=== PATIENT | female | born 1985 ===

== ENCOUNTER 2018-10-17 13:02 | Outpatient (CLI) | payer SELFPAY ==
[2018-10-17] MEDS ORDERED: LACTATED RINGERS 500 ML IV ONE (13:45)
[2018-10-17] MEDS ORDERED: LACTATED RINGERS 1,000 ML IV SCH (14:00)
[2018-10-17 14:35] LABS: Hematocrit 38.8 % (30.3-42.9); Mean Corpuscular HGB Conc 33 % (30-34); Mean Corpuscular Volume 94 fl (79-97); Platelet Count 185 K/mm3 (140-440); Red Blood Count 4.14 M/mm3 (3.65-5.03)
[2018-10-17 14:44] LABS: Bacteria,Urine 2+ /HPF (Negative); Bilirubin,Urine NEG (Negative); Blood,Urine NEG (Negative); Color,Urine Yellow (Yellow); Mucus,Urine 3+ /HPF; Urobilinogen,Urine < 2.0 mg/dL (<2.0)
[2018-10-17 14:57] LABS: Alanine Aminotransferase 16 units/L (7-56)
[2018-10-17 15:02] LABS: Uric Acid 5.7 mg/dL (3.5-7.6)
--- NOTE | 2018-10-17 15:19 | Ultrasound Report ---
ULTRASOUND BIOPHYSICAL PROFILE INDICATION: BPP/GAYLE. well being COMPARISON: None available. FINDINGS: heart rate is 145 beats per minute. breathing movement = 2 Gross body movement = 2 tone = 2 Qualitative amniotic fluid volume = 2 IMPRESSION: biophysical profile = 10/23 Signer Name: Bhaskar Rosenthal Jr, MD Signed: 10/17/2018 3:15 PM Workstation Name: [id number]
--- NOTE | 2018-10-17 15:21 | Ultrasound Report ---
OB ultrasound limited History: EFW Comparison: None Procedure: Real time ultrasound was utilized to evaluate. Findings: A single intrauterine is identified which by BPD,HC, AC and FL measurements is eq uivalent to a 37 weeks 1 day gestation. Positive heart motion and movement is identified. Amnionic fluid volume is normal with an index of 15.6 cm. Estimated weight is 3976 g (8 lbs. 12 oz.) biometry is as follows: BPD 9.2 cm, 37 weeks 1 day HC 33.0 cm, 37 weeks 4 days AC. 38.5 cm, out of range Femur length 7.1 cm, 36 weeks 4 days anatomy was not evaluated. Impression: 1. Living IUP 37 week 1 day gestation is present in a cephalic presentation. 2. Estimated body weight is 8 lbs. 12 oz. (3976 g). Signer Name: Celina Kapoor MD Signed: 10/17/2018 3:17 PM Workstation Name: [id number]
[2018-10-18 14:20] LABS: Creatinine,Urine 73.4 mg/dL (0.1-20.0)
[2018-10-18 14:25] LABS: Creatinine 24 Hour,Urine 1.8 (0.8-2.8)
[2018-10-18 15:29] VITALS: BP 141/71
== END 2018-10-18 16:00 | disposition home or self-care (01) ==
LOC: TRG 13:02 → LD 13:03 → TRG 10-18 16:00
PROVIDERS: ATTEND Obstetrics & Gynecology
DX: O13.3 Gestational [pregnancy-induced] hypertension without significant proteinuria, third trimester (principal); O47.03 False labor before 37 completed weeks of gestation, third trimester; Z3A.36 36 weeks gestation of pregnancy
CPT/HCPCS: 36415; 76816; 76819; 81001; 82565; 82570; 83615; 84156; 84450; 84460; 84550; 85027; 86850; 86870; 86900; 86901; 87086; J7120

== ENCOUNTER 2018-10-23 17:37 | Inpatient (IN) | payer OTHER ==
[2018-10-23 20:28] LABS: Hematocrit 34.9 % (30.3-42.9); Hemoglobin 12.2 gm/dl (10.1-14.3); Mean Corpuscular HGB Conc 35 % (30-34); Mean Corpuscular Volume 91 fl (79-97); Platelet Count 175 K/mm3 (140-440); Red Blood Count 3.82 M/mm3 (3.65-5.03); Red Cell Distribution Width 13.9 % (13.2-15.2)
[2018-10-23 20:38] LABS: Bilirubin,Urine NEG (Negative); Blood,Urine NEG (Negative); Color,Urine Yellow (Yellow); Mucus,Urine FEW /HPF; Protein,Urine <15 mg/dL mg/dL (Negative); Urobilinogen,Urine < 2.0 mg/dL (<2.0)
[2018-10-23 20:45] LABS: Alanine Aminotransferase 16 units/L (7-56); Uric Acid 6.4 mg/dL (3.5-7.6)
[2018-10-23] MEDS ORDERED: BRETHINE SUB-Q PRN (21:02)
[2018-10-23] MEDS ORDERED: XYLOCAINE 2% INFILTRATI ONE (21:02)
[2018-10-23] MEDS ORDERED: MINERAL OIL PO PRN (21:02)
[2018-10-23] MEDS ORDERED: PHENERGAN PO PRN (21:02)
[2018-10-23] MEDS ORDERED: NARCAN 0.4 MG/1 ML IV PRN (21:02)
[2018-10-23] MEDS ORDERED: CERVIDIL VG ONE (21:02)
[2018-10-23] MEDS ORDERED: ZOFRAN IV PRN (21:02)
[2018-10-23] MEDS ORDERED: BRETHINE IVP PRN (21:02)
--- NOTE | 2018-10-23 21:25 | History and Physical Report ---
History of Present Illness Date of examination: 10/23/18 Date of admission: 10/23/2018 Chief complaint: Sent from office for elevated b/p History of present illness: 33 yo , CHRISS 11/09/2018, 37 weeks 4 days sent from [facility] with elevated pressures, c/o persistent headaches for PIH work-up. Pt previously had PIH labs (WNL) and 24 hr UA collection (400 Protein) on 10/17/18. Today NST reactive and reassuring. BPP 10/23. GAYLE 11cm. PIH labs LDH 232. Pt complains of persistent BECKMAN with no relief from Tylenol. 1+ edema noted. Per consult with Dr. Edmondson pt to be admitted for cervidil IOL. Pt transferred care to [facility] at 33w1d from [facility]. has been uncomplicated until onset of headaches and elevated b/p recently. 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 denies: smoking, alcohol abuse, prescription drug abuse, IV drug use - Obstetrical History Expected Date of Delivery: 11/09/18 Actual Gestation: 37 Week(s) 4 Day(s) : 2 Para: 0 Hx # Term Pregnancies: 0 Number of Pregnancies: 0 Spontaneous Abortions: 0 Induced : 1 Number of Living Children: 0 Medications and Allergies Allergies Allergy/AdvReac Type Severity Reaction Status Date / Time No Known Allergies Allergy Verified 10/17/18 13:47 Active Meds: Active Medications Dinoprostone (Cervidil) 10 mg VG ONCE ONE Stop: 10/23/18 21:03 Ephedrine Sulfate (Ephedrine Sulfate) 10 mg IV Q2M PRN PRN Reason: Hypotension Oxytocin/Sodium Chloride (Pitocin/Ns 20 Unit/1000ml Drip) 20 units in 1,000 mls @ 125 mls/hr IV DIRECT KASEY Lactated Ringer's (Lactated Ringers) 1,000 mls @ 125 mls/hr IV DIRECT KASEY Lidocaine (Xylocaine 2%) 20 ml INFILTRATI ONCE ONE Stop: 10/23/18 21:03 Mineral Oil (Mineral Oil) 30 ml PO QHS PRN PRN Reason: Constipation Naloxone HCl (Narcan 0.4 Mg/1 Ml) 0.1 mg IV Q2MIN PRN PRN Reason: Res Rate </= 8 or 02 SAT < 92% Ondansetron HCl (Zofran) 4 mg IV Q8H PRN PRN Reason: Nausea And Vomiting Promethazine HCl (Phenergan) 25 mg PO Q6H PRN PRN Reason: Nausea And Vomiting Terbutaline Sulfate (Brethine) 0.25 mg SUB-Q ONCE PRN PRN Reason: Hyperstimulation/Hypertonicity Terbutaline Sulfate (Brethine) 0.25 mg IVP ONCE PRN PRN Reason: Hyperstimulation/Hypertonicity Review of Systems Eyes: normal appearance Cardiovascular: no chest pain, no shortness of breath Respiratory: no shortness of breath Breasts: normal Gastrointestinal: no abdominal pain, no nausea, no vomiting, no diarrhea Genitourinary: normal appearance, contractions (mild), no vaginal bleeding, no vaginal discharge, no leakage of fluid, no genital sores Integumentary: no rash, no sores, no lesions - Vital Signs Vital signs: Vital Signs Pulse Pulse Ox 91 H 100 10/23/18 18:23 10/23/18 18:23 Temp Pulse Resp BP Pulse Ox 86 145/89 100 10/23/18 21:09 10/23/18 21:09 10/23/18 19:18 - Physical Exam Breasts: Positive: normal Cardiovascular: Regular rate, Normal S1, Normal S2, No murmurs Lungs: Positive: Clear to auscultation, Normal air movement Abdomen: Positive: normal appearance, soft, normal bowel sounds, other (Gravid). Negative: distention Genitourinary (Female): Positive: normal external genitalia, normal perenium Vulva: both: normal Vagina: Positive: normal moisture Extremities: Positive: normal Deep Tendon Reflex Grade: Normal +2 - Obstetrical FHR: auscultation normal, category 1 Uterine Contraction Monitor Mode: External Cervical Dilatation: 0 Cervical Effacement Percentage: 40 station: -3 Uterine Contraction Pattern: Irregular Uterine Tone Measurement Phase: Resting Uterine Contraction Intensity: Mild Results Result Diagrams: 10/23/18 Unknown 10/23/18 Unknown Abnormal lab results 10/23/18 10/23/18 Range/Units Unknown Unknown WBC 12.1 H (4.5-11.0) K/mm3 MCHC 35 H (30-34) % Creatinine 0.5 L (0.7-1.2) mg/dL Lactate Dehydrogenase 232 H (91-180) units/L All other labs normal. Assessment and Plan A: IUP at 37w4d Induced Hypertension Category 1 tracing Persistent Headaches 24hr UA 400 Protein on 10/17/18 GBS negative Irregular contractions P: Admit to L&D; routine labor orders Cervidil IOL per consult with Dr. Delvis MD
--- NOTE | 2018-10-23 21:51 | Ultrasound Report ---
US OB LIMITED, US OB BPP WO NON-STRESS INDICATION / CLINICAL INFORMATION: GAYLE. well-being. COMPARISON: 10/17/18 FINDINGS: Single intrauterine in cephalic position. Amniotic fluid index is 11.1 cm which is within normal limits. Placenta is anterior. heart rate is 166 bpm. BREATHING MOVEMENT = 2 GROSS BODY MOVEMENT = 2 TONE = 2 QUALITATIVE AMNIOTIC FLUID VOLUME = 2 TOTAL BIOPHYSICAL SCORE = 8/8 IMPRESSION: 1. No acute sonographic abnormality. 2. Total biophysical score is 8/8. Signer Name: Juan Ramon Richey MD Signed: 10/23/2018 9:47 PM Workstation Name: [id number]
[2018-10-23] MEDS ORDERED: PITOCin/NS 20 UNIT/1000ML DRIP 20 UNITS/1,000 ML BAG IV SCH (22:00)
[2018-10-24] MEDS: LACTATED RINGERS 1,000 ML IV SCH ×2 (08:49→19:43)
[2018-10-24] MEDS ORDERED: SUBLIMAZE IV PRN (09:30)
[2018-10-24] MEDS ORDERED: STADOL IV PRN (09:30)
--- NOTE | 2018-10-24 10:32 | Progress Note ---
Assessment and Plan - Patient Problems (1) 37 weeks gestation of Current Visit: Yes Status: Acute (2) induced hypertension Current Visit: Yes Status: Acute Qualifiers: Trimester: third trimester Qualified Code(s): O13.3 - Gestational [-induced] hypertension without significant proteinuria, third trimester Plan to address problem: Currently asymptomatic (3) Encounter for induction of labor Current Visit: Yes Status: Acute Plan to address problem: Continue current management Start oxytocin for labor augmentation if indicated after cervidil removed Anticipate vaginal delivery (4) Rh negative, maternal Current Visit: Yes Status: Acute Qualifiers: Trimester: third trimester Qualified Code(s): O26.893 - Other specified related conditions, third trimester; Z67.91 - Unspecified blood type, Rh negative Plan to address problem: RhoGam Subjective - Subjective Date of service: 10/24/18 Principal diagnosis: IUP @ 37w5d; IOL for PIH Interval history: see H&P Patient reports: movement normal, contractions, other (denies headache, visual disturbances or RUQ pain), no loss of fluid, no vaginal bleeding Objective - Vital Signs Vital Signs: Vital Signs - 12hr 10/24/18 10/24/18 10/24/18 00:25 00:56 01:25 Temperature Pulse Rate 90 90 105 H Respiratory Rate Blood Pressure 132/86 137/94 132/89 10/24/18 10/24/18 10/24/18 01:54 02:54 05:24 Temperature Pulse Rate 113 H 88 73 Respiratory Rate Blood Pressure 142/94 150/90 131/77 10/24/18 10/24/18 10/24/18 05:54 06:25 06:54 Temperature Pulse Rate 65 75 80 Respiratory Rate Blood Pressure 143/77 140/98 144/88 10/24/18 10/24/18 10/24/18 07:26 08:24 08:31 Temperature 98 F Pulse Rate 71 81 Respiratory 18 Rate Blood Pressure 138/93 146/82 10/24/18 10/24/18 10/24/18 08:55 09:25 09:55 Temperature Pulse Rate 81 68 70 Respiratory Rate Blood Pressure 139/87 142/83 144/70 - Exam FHR: auscultation normal, category 1 FHR comments: baseline 130, moderate variability, 15x15 accels, no decels Uterine Contraction Monitor Mode: External Cervical Dilatation: 0 Cervical Effacement Percentage: 40 station: -3 Uterine Contraction Frequency (min): 2-5 Uterine Contraction Pattern: Regular - Labs Labs: Abnormal Labs 10/23/18 10/23/18 Unknown Unknown WBC 12.1 H MCHC 35 H Creatinine 0.5 L Lactate Dehydrogenase 232 H Laboratory Results - last 24 hr 10/23/18 10/23/18 10/23/18 21:30 Unknown Unknown WBC 12.1 H RBC 3.82 Hgb 12.2 Hct 34.9 MCV 91 MCH 32 MCHC 35 H RDW 13.9 Plt Count 175 Creatinine Estimated GFR Uric Acid AST ALT Lactate Dehydrogenase Urine Color Yellow Urine Turbidity Slightly-cloudy Urine pH 5.0 Ur Specific [place] 1.013 Urine Protein <15 mg/dl Urine Glucose (UA) Neg Urine Ketones Neg Urine Blood Neg Urine Nitrite Neg Urine Bilirubin Neg Urine Urobilinogen < 2.0 Ur Leukocyte Esterase Neg Urine WBC (Auto) 3.0 Urine RBC (Auto) 2.0 U Epithel Cells (Auto) 8.0 Urine Mucus Few Blood Type O NEGATIVE Antibody Screen Positive Antibody Identification Anti-D (Passively Aquired) 10/23/18 Unknown WBC RBC Hgb Hct MCV MCH MCHC RDW Plt Count Creatinine 0.5 L Estimated GFR > 60 Uric Acid 6.4 AST 20 ALT 16 Lactate Dehydrogenase 232 H Urine Color Urine Turbidity Urine pH Ur Specific [place] Urine Protein Urine Glucose (UA) Urine Ketones Urine Blood Urine Nitrite Urine Bilirubin Urine Urobilinogen Ur Leukocyte Esterase Urine WBC (Auto) Urine RBC (Auto) U Epithel Cells (Auto) Urine Mucus Blood Type Antibody Screen Antibody Identification
[2018-10-24] MEDS ORDERED: CERVIDIL VG PRN (18:00)
[2018-10-24] MEDS ORDERED: MAGNESIUM SULFATE 4GM/100ML 4 GM/100 ML BAG IV ONE (18:24)
--- NOTE | 2018-10-24 18:31 | Event Note ---
Date: 10/24/18 Assumed care of patient. Patient is having labor induced at term for preeclampsia. Reviewed BPs; patient has had several BPs in severe range. Patient reports headaches and swelling and epigastric pain. Facial, hand, and lower extremity edema noted. Brisk reflexes. Patient denies nausea or vomiting or visual disturbance. Labetalol ordered for BP control. Magnesium Sulfate also ordered due to preeclampsia with severe features. Will consult with Dr. Saba re: this patient.
[2018-10-24] MEDS: NORMODYNE PO SCH ×2 (18:40→21:46)
[2018-10-24 19:15] LABS: Basophils # (Auto) 0.1 K/mm3 (0.0-0.1); Basophils % (Auto) 0.7 % (0.0-1.8); Eosinophils # (Auto) 0.1 K/mm3 (0.0-0.4); Eosinophils % (Auto) 0.6 % (0.0-4.3); Hemoglobin 11.6 gm/dl (10.1-14.3); Lymphocytes # (Auto) 2.1 K/mm3 (1.2-5.4); Lymphocytes % (Auto) 15.3 % (13.4-35.0); Mean Corpuscular HGB Conc 34 % (30-34); Mean Corpuscular Volume 94 fl (79-97); Monocytes # (Auto) 1.1 K/mm3 (0.0-0.8); Monocytes % (Auto) 7.8 % (0.0-7.3); Platelet Count 172 K/mm3 (140-440); Red Blood Count 3.62 M/mm3 (3.65-5.03)
[2018-10-24] MEDS: MAGNESIUM SULFATE 40GM/1000ML 40 GM/1,000 ML BAG IV SCH (19:20)
[2018-10-24 19:39] LABS: Alanine Aminotransferase 17 units/L (7-56); Albumin 3.1 g/dL (3.9-5); BUN/Creatinine Ratio 35; Blood Urea Nitrogen 21 mg/dL (7-17); Calcium 9.3 mg/dL (8.4-10.2); Hemolysis Index 7
--- NOTE | 2018-10-24 20:05 | Event Note ---
Date: 10/24/18 SVE: closed, thick, high/ballotable, posterior. No lesions seen on careful exam with bright light.
[2018-10-24] MEDS: FLONASE NS PRN (21:10)
[2018-10-24] MEDS ORDERED: TYLENOL PO ONE (21:11)
[2018-10-25] MEDS ORDERED: REGLAN ONE (00:08)
[2018-10-25] MEDS ORDERED: BICITRA ONE (00:08)
[2018-10-25] MEDS ORDERED: PEPCID IV ONE ×2 (00:09→07:00)
[2018-10-25] MEDS ORDERED: ANCEF/STERILE WATER 2 GM/20 ML 2 GM/20 ML SYRINGE IV ONE (00:09)
--- NOTE | 2018-10-25 00:09 | Event Note ---
Date: 10/25/18 Patient reports her legs feel "shaky." + clonus and brisk reflexes 4+ bilaterally noted. Patient states her headache has resolved with Tylenol. Denies visual disturbance. Temp. 98.4. Called Dr. Saba re: patient's complaint of feeling shaky and brisk reflexes and clonus. Dr. Saba states he will deliver baby by section. Dr. Saba spoke with patient and family using Yakut language line and consents signed. Team notified of stat section.
--- NOTE | 2018-10-25 00:17 | Event Note ---
Date: 10/25/18 Patient is having labor induced at term for preeclampsia, beginning 10/23/2018. Reviewed BPs; patient has had several BPs in severe range. Patient reports headaches and swelling and epigastric pain. Facial, hand, and lower extremity edema noted. Brisk reflexes. Patient denies nausea or vomiting or visual disturbance. Cervix remains unfavorable to expect adequate labor and a chance at vaginal delivery any time soon. On Labetalol and Magnesium Sulfate for severe preeclampsia. IMP: Severe preeclampsia. Plan: For delivery. I discussed the clinical situation with patient and her family. All her questions were fully answered. She understood all the risks of pre eclampsia and delivery and she consented to proceed.
[2018-10-25] MEDS ORDERED: ZOFRAN ONE (00:23)
[2018-10-25] MEDS ORDERED: ANCEF/STERILE WATER 2 GM/20 ML IV ONE (00:35)
[2018-10-25] MEDS ORDERED: NACL 0.9% IR ONE (00:55)
[2018-10-25] MEDS ORDERED: WATER FOR IRRIG STERILE IR ONE (00:55)
--- NOTE | 2018-10-25 00:58 | Anesthesia Consultation ---
Anesthesia Consult and Med Hx Date of service: 10/25/18 - Airway Anesthetic Teeth Evaluation: Good ROM Head & Neck: Adequate Mental/Hyoid Distance: Adequate Mallampati Class: Class II Intubation Access Assessment: Good - Pulmonary Exam CTA: Yes - Cardiac Exam Cardiac Exam: RRR - Pre-Operative Health Status ASA Pre-Surgery Classification: ASA2, Emergency Proposed Anesthetic Plan: Spinal - Pulmonary Hx Asthma: No COPD: No Hx Pneumonia: No - Cardiovascular System Hx Hypertension: No - Central Nervous System Hx Seizures: No Hx Psychiatric Problems: No - Endocrine Hx Renal Disease: No Hx End Stage Renal Disease: No Hx Hypothyroidism: No Hx Hyperthyroidism: No - Hematic Hx Anemia: No Hx Sickle Cell Disease: No - Other Systems Hx Alcohol Use: No
[2018-10-25] MEDS ORDERED: PHENERGAN PO PRN (00:59)
[2018-10-25] MEDS ORDERED: PHENERGAN PR PRN (00:59)
[2018-10-25] MEDS ORDERED: ZOFRAN IV PRN ×2 (00:59→01:56)
[2018-10-25] MEDS ORDERED: DILAUDID IV PRN ×2 (00:59)
[2018-10-25] MEDS ORDERED: NARCAN 0.4 MG/1 ML IV PRN ×2 (00:59→01:56)
--- NOTE | 2018-10-25 00:59 | Anesthesia Day of Surgery ---
Anesthesia Day of Surgery - Day of Surgery Patient Examined: Yes Patient H&P Reviewed: Yes Patient is NPO: No
[2018-10-25] MEDS ORDERED: SODIUM CHLORIDE FLUSH SYRINGE 10 ML IV NR ×2 (01:00→02:00)
[2018-10-25] MEDS ORDERED: TORADOL ONE (01:05)
[2018-10-25] MEDS ORDERED: BENADRYL ONE (01:05)
--- NOTE | 2018-10-25 01:53 | Operative Report ---
Operative Report Operative Report: Date of surgery 10/25/2018 Preoperative diagnoses: Term , failed induction, severe preeclampsia. Postoperative: diagnoses the same Procedure: Low segment transverse section Surgeon: Kassie Saba MD Brand Leader: Noé Fermin CRNA Anesthesia: Spinal block. EBL 600 mL Complications: None Findings: There was a live baby boy in vertex presentation weighing 8 lbs. 7 oz., scores were 7/8. Both ovaries and fallopian tubes were grossly normal as was the uterus. Procedure in details: The patient was taken to the operating room and given a spinal blockade. An indwelling Mane catheter was inserted. In the straight supine position with a slight left lateral tilt patient was prepped. The drapes were placed. A timeout was done. With the go ahead from the trench pipe layer, a Pfannenstiel incision was made. The incision was carried across the subcutaneous layer to the fascia which was divided transversely. The recti abdominis muscle flaps were dissected off of the fascia using a combination of blunt and sharp dissections. The muscle straps were in the midline to gain the anterior parietal peritoneum. After excluding any underlying viscera, the anterior parietal peritoneum was cut. The excess into the abdominal cavity was widened by stretching. The bladder blade was applied. The utero vesicle peritoneal flap was divided transversely allowing the bladder to be displaced caudally. The uterine incision was placed transversely in the lower segment. The cavity of the uterus was entered bluntly with the bandage scissors which was also used to extend the uterine incision laterally on both sides. The amniotic sac was ruptured with clear fluid. The head of the infant was lifted out all of the false pelvis without any difficulties and delivered through the incision using fundal pressure. The airways where bulb suctioned beginning with the mouth. The rest of baby was delivered by a combination of fundal pressure and traction on the mandibular processes on the baby's jaw. The umbilical cord was double clamped and divided. The baby was carefully transferred to the pediatric team. The placenta was removed manually. The uterine cavity was explored and was empty of any placental remnants. The uterine incision was repaired in 2 layers with #1 Vicryl. The surgical line on the uterus was hemostatic. Blood clots were cleared from the peritoneal cavity before closing the anterior parietal peritoneum with #1 Vicryl. The fascia was closed with #1 Vicryl. Hemostasis within the subcutaneous layer was achieved using the Bovie. The skin was closed subcuticularly with 4-0 Vicryl. All sponge and instrument counts were correct. There were no complications. Patient tolerated procedure well. The estimated blood loss was 600 mL. Patient was transferred safely to the recovery room.
[2018-10-25] MEDS ORDERED: LANSINOH TP PRN (01:56)
[2018-10-25] MEDS ORDERED: TUCKS PAD TP PRN (01:56)
[2018-10-25] MEDS ORDERED: TORADOL IV PRN (01:56)
[2018-10-25] MEDS ORDERED: MORPHINE IV PRN (01:56)
[2018-10-25] MEDS ORDERED: PITOCin/NS 20 UNIT/1000ML DRIP 20 UNITS/1,000 ML BAG IV SCH (02:00)
[2018-10-25] MEDS ORDERED: TYLENOL PO NR (04:58)
[2018-10-25] MEDS ORDERED: BICITRA PO NR (05:20)
[2018-10-25] MEDS ORDERED: ANCEF/STERILE WATER 2 GM/20 ML IV NR (06:00)
[2018-10-25] MEDS ORDERED: REGLAN IV ONE (07:00)
[2018-10-25] MEDS: FLONASE NS PRN (07:48)
[2018-10-25] MEDS: FEOSOL PO SCH (09:57)
[2018-10-25] MEDS: NORMODYNE PO SCH ×2 (09:57→22:18)
[2018-10-25] MEDS: ANCEF/NS 1 GM/50 ML 1 GM/50 ML BAG IV SCH ×2 (09:58→17:22)
--- NOTE | 2018-10-25 11:03 | Post Anesthesia Evaluation ---
- Post Anesthesia Evaluation Patient Participated: Yes Airway Patent: Yes Stable Respiratory Function: Yes Nausea/Vomiting: No Temp > 96.8F: Yes Pain Manageable: Yes Adequeate Hydration: Yes Anesthesia Complications: No Block Receding Appropriately: Yes Patient on Ventilator: No
--- NOTE | 2018-10-25 12:49 | Progress Note ---
Assessment and Plan A: /postop day 1 S/P primary low transverse section. Preeclampsia with severe features. P: Continue current management. Will consult with Dr. Zhong re: heart murmur heard during exam. Subjective - Subjective Date of service: 10/25/18 Principal diagnosis: /postop day 1 S/P primary LTCS Interval history: /postop day 1 S/P primary low transverse section. Preeclampsia with severe features. Patient denies headache or visual disturbance. She denies nausea or vomiting or epigastric pain. She continues to receive Labetalol to control her BPs and she also continues to receive Magnesium Sulfate for seizure prevention. Patient states she is feeling much better. No flatus yet. Mane catheter in place. SCDs in place. Patient reports: pain well controlled, no nauseated [place]: doing well Objective - Vital Signs Latest vital signs: Vital Signs Temp Pulse Resp BP BP Pulse Ox 10/25/18 12:16 99 H 128/69 10/25/18 11:16 89 131/74 10/25/18 10:16 100 H 138/71 10/25/18 09:56 105 H 129/74 10/25/18 09:16 108 H 136/75 10/25/18 08:16 102 H 132/85 10/25/18 08:00 98.0 F 10/25/18 07:16 106 H 147/85 10/25/18 06:16 97 H 125/59 10/25/18 05:16 96 H 129/66 10/25/18 04:16 90 136/76 10/25/18 03:19 83 135/77 10/25/18 02:05 98.1 F 10/25/18 01:35 97.6 F 10/25/18 00:06 89 94 10/25/18 00:01 89 96 10/24/18 23:56 95 H 96 10/24/18 23:51 87 123/67 93 10/24/18 23:48 97 H 93 10/24/18 23:46 84 94 10/24/18 23:42 91 H 94 10/24/18 23:41 92 H 96 10/24/18 23:37 88 94 10/24/18 23:36 89 95 10/24/18 23:31 82 95 10/24/18 23:26 104 H 94 10/24/18 23:21 93 H 120/75 93 10/24/18 23:18 86 94 10/24/18 23:16 94 H 95 10/24/18 23:13 92 H 94 10/24/18 23:11 89 94 10/24/18 23:07 92 H 94 10/24/18 23:06 89 96 10/24/18 23:01 89 94 10/24/18 22:57 88 94 10/24/18 22:56 94 H 95 10/24/18 22:52 89 94 10/24/18 22:51 84 136/65 95 10/24/18 22:47 84 94 10/24/18 22:46 86 96 10/24/18 22:41 96 H 96 10/24/18 22:40 87 94 10/24/18 22:36 86 95 10/24/18 22:31 91 H 97 10/24/18 22:26 86 97 10/24/18 22:21 96 H 120/62 97 10/24/18 22:16 99 H 97 10/24/18 22:11 104 H 96 10/24/18 22:06 95 H 98 10/24/18 22:01 91 H 97 10/24/18 21:56 88 97 10/24/18 21:51 80 119/60 96 10/24/18 21:47 90 93 10/24/18 21:46 89 140/75 96 10/24/18 21:41 92 H 97 10/24/18 21:36 86 97 10/24/18 21:35 88 94 10/24/18 21:31 89 97 10/24/18 21:26 91 H 96 10/24/18 21:25 86 94 10/24/18 21:21 91 H 140/75 95 10/24/18 21:17 92 H 93 10/24/18 21:16 84 95 10/24/18 21:11 83 95 10/24/18 21:09 82 94 10/24/18 21:06 80 96 10/24/18 21:01 96 H 95 10/24/18 20:56 83 96 10/24/18 20:52 80 93 10/24/18 20:51 79 133/78 96 10/24/18 20:47 79 91 10/24/18 20:46 74 95 10/24/18 20:41 82 97 10/24/18 20:37 80 93 10/24/18 20:36 76 97 10/24/18 20:31 78 96 10/24/18 20:30 81 L 10/24/18 20:26 78 87 10/24/18 20:22 84 94 10/24/18 20:21 83 133/69 96 10/24/18 20:16 81 96 10/24/18 20:07 88 94 10/24/18 20:03 78 91 10/24/18 20:02 69 94 10/24/18 19:57 84 94 10/24/18 19:51 75 130/62 10/24/18 19:47 82 88 10/24/18 19:41 86 93 10/24/18 19:40 98.6 F 86 18 160/93 10/24/18 19:37 80 97 10/24/18 19:32 86 160/93 97 10/24/18 18:40 77 139/81 10/24/18 18:36 77 139/81 10/24/18 17:36 73 142/93 10/24/18 15:50 98.4 F 18 10/24/18 14:55 64 152/83 10/24/18 13:54 75 145/88 Intake and Output 10/24/18 10/25/18 10/25/18 23:59 07:59 15:59 Intake Total 1000 1300 Output Total 600 1250 300 Balance 400 50 -300 Intake: IV 1000 1300 Lactated Ringers 1,000 ml 1000 @ 125 mls/hr IV DIRECT KASEY Rx#:[id number] Output: Urine 600 1250 300 Indwelling Catheter 600 300 Void 1000 Other: Total, Output Amount 600 1000 100 Estimated Blood Loss 600 - Exam Cardiovascular: Present: Regular rate, Normal S1, Normal S2, Other (Murmur heard) Lungs: Present: Clear to auscultation Abdomen: Present: normal appearance, soft, normal bowel sounds. Absent: distention, tenderness, guarding, rigidity Uterus: Present: firm, fundal height below umbilicus. Absent: bogginess, tenderness Extremities: Present: normal, edema (moderate edema of hands and bilateral lower extremities). Absent: tenderness Incision: Present: normal, dry, intact, dressed - Labs Labs: Abnormal lab results 10/24/18 10/24/18 10/25/18 Range/Units 18:50 18:50 04:15 WBC 13.7 H (4.5-11.0) K/mm3 RBC 3.62 L (3.65-5.03) M/mm3 [place] % (Auto) 7.8 H (0.0-7.3) % [place] # 1.1 H (0.0-0.8) K/mm3 Seg Neutrophils % 75.6 H (40.0-70.0) % Seg Neutrophils # 10.4 H (1.8-7.7) K/mm3 Chloride 107.1 H (98-107) mmol/L Carbon Dioxide 19 L (22-30) mmol/L BUN 21 H (7-17) mg/dL Creatinine 0.6 L (0.7-1.2) mg/dL Magnesium 4.40 H (1.7-2.3) mg/dL Alkaline Phosphatase 165 H (35-129) units/L Albumin 3.1 L (3.9-5) g/dL 10/25/18 Range/Units 07:07 WBC (4.5-11.0) K/mm3 RBC (3.65-5.03) M/mm3 [place] % (Auto) (0.0-7.3) % [place] # (0.0-0.8) K/mm3 Seg Neutrophils % (40.0-70.0) % Seg Neutrophils # (1.8-7.7) K/mm3 Chloride (98-107) mmol/L Carbon Dioxide (22-30) mmol/L BUN (7-17) mg/dL Creatinine (0.7-1.2) mg/dL Magnesium 4.60 H (1.7-2.3) mg/dL Alkaline Phosphatase (35-129) units/L Albumin (3.9-5) g/dL
[2018-10-25 14:25] LABS: Hemoglobin 10.9 gm/dl (10.1-14.3)
--- NOTE | 2018-10-25 16:24 | Progress Note ---
Assessment and Plan - Patient Problems (1) 37 weeks gestation of Current Visit: Yes Status: Acute (2) S/P section Current Visit: Yes Status: Acute Plan to address problem: Continue routine post-op care. (3) Pre-eclampsia Current Visit: Yes Status: Acute Plan to address problem: Continue until tonight. Monitor Mg levels, DTRs, urine output. Monitor BP. Continue labetolol for BP control. (4) Obesity Current Visit: Yes Status: Acute Qualifiers: Obesity type: due to excess calories Subjective - Subjective Date of service: 10/25/18 Principal diagnosis: /postop day 1 S/P primary LTCS Interval history: Patient is a 33 year old, , who is S/P primary C/section at 37 weeks 4 days early this AM due to severe pre-eclampsia. She was admitted for labor induction with cervidil and her BP became unstable and showed signs of worsening pre-eclampsia. Today, she denies any complaint other than post-op pain which is controlled with Switzer. Her urine output is adequate, DTRs normal, Mg level was 5.2 at 2 PM. BP is stable. Objective - Vital Signs Latest vital signs: Vital Signs Temp Pulse Resp BP BP Pulse Ox 10/25/18 16:16 86 126/69 10/25/18 15:16 86 128/59 10/25/18 14:16 92 H 134/76 10/25/18 13:16 97 H 134/76 10/25/18 12:16 99 H 128/69 10/25/18 12:00 98.0 F 10/25/18 11:16 89 131/74 10/25/18 10:16 100 H 138/71 10/25/18 09:56 105 H 129/74 10/25/18 09:16 108 H 136/75 10/25/18 08:16 102 H 132/85 10/25/18 08:00 98.0 F 10/25/18 07:16 106 H 147/85 10/25/18 06:16 97 H 125/59 10/25/18 05:16 96 H 129/66 10/25/18 04:16 90 136/76 10/25/18 03:19 83 135/77 10/25/18 02:05 98.1 F 10/25/18 01:35 97.6 F 10/25/18 00:06 89 94 10/25/18 00:01 89 96 10/24/18 23:56 95 H 96 10/24/18 23:51 87 123/67 93 10/24/18 23:48 97 H 93 10/24/18 23:46 84 94 10/24/18 23:42 91 H 94 10/24/18 23:41 92 H 96 10/24/18 23:37 88 94 10/24/18 23:36 89 95 10/24/18 23:31 82 95 10/24/18 23:26 104 H 94 10/24/18 23:21 93 H 120/75 93 10/24/18 23:18 86 94 10/24/18 23:16 94 H 95 10/24/18 23:13 92 H 94 10/24/18 23:11 89 94 10/24/18 23:07 92 H 94 10/24/18 23:06 89 96 10/24/18 23:01 89 94 10/24/18 22:57 88 94 10/24/18 22:56 94 H 95 10/24/18 22:52 89 94 10/24/18 22:51 84 136/65 95 10/24/18 22:47 84 94 10/24/18 22:46 86 96 10/24/18 22:41 96 H 96 10/24/18 22:40 87 94 10/24/18 22:36 86 95 10/24/18 22:31 91 H 97 10/24/18 22:26 86 97 10/24/18 22:21 96 H 120/62 97 10/24/18 22:16 99 H 97 10/24/18 22:11 104 H 96 10/24/18 22:06 95 H 98 10/24/18 22:01 91 H 97 10/24/18 21:56 88 97 10/24/18 21:51 80 119/60 96 10/24/18 21:47 90 93 10/24/18 21:46 89 140/75 96 10/24/18 21:41 92 H 97 10/24/18 21:36 86 97 10/24/18 21:35 88 94 10/24/18 21:31 89 97 10/24/18 21:26 91 H 96 10/24/18 21:25 86 94 10/24/18 21:21 91 H 140/75 95 10/24/18 21:17 92 H 93 10/24/18 21:16 84 95 10/24/18 21:11 83 95 10/24/18 21:09 82 94 10/24/18 21:06 80 96 10/24/18 21:01 96 H 95 10/24/18 20:56 83 96 10/24/18 20:52 80 93 10/24/18 20:51 79 133/78 96 10/24/18 20:47 79 91 10/24/18 20:46 74 95 10/24/18 20:41 82 97 10/24/18 20:37 80 93 10/24/18 20:36 76 97 10/24/18 20:31 78 96 10/24/18 20:30 81 L 10/24/18 20:26 78 87 10/24/18 20:22 84 94 10/24/18 20:21 83 133/69 96 10/24/18 20:16 81 96 10/24/18 20:07 88 94 10/24/18 20:03 78 91 10/24/18 20:02 69 94 10/24/18 19:57 84 94 10/24/18 19:51 75 130/62 10/24/18 19:47 82 88 10/24/18 19:41 86 93 10/24/18 19:40 98.6 F 86 18 160/93 10/24/18 19:37 80 97 10/24/18 19:32 86 160/93 97 10/24/18 18:40 77 139/81 10/24/18 18:36 77 139/81 10/24/18 17:36 73 142/93 Intake and Output 10/25/18 10/25/18 10/25/18 07:59 15:59 23:59 Intake Total 1300 Output Total 1250 1100 Balance 50 -1100 Intake: IV 1300 Output: Urine 1250 1100 Indwelling Catheter 1100 Void 1000 Other: Total, Output Amount 1000 250 Estimated Blood Loss 600 - Exam Cardiovascular: Present: Normal S1, Normal S2 Lungs: Present: Clear to auscultation Vulva: both: normal Deep Tendon Reflex Grade: Normal +2 - Labs Labs: Abnormal lab results 10/24/18 10/24/18 10/25/18 Range/Units 18:50 18:50 04:15 WBC 13.7 H (4.5-11.0) K/mm3 RBC 3.62 L (3.65-5.03) M/mm3 [place] % (Auto) 7.8 H (0.0-7.3) % [place] # 1.1 H (0.0-0.8) K/mm3 Seg Neutrophils % 75.6 H (40.0-70.0) % Seg Neutrophils # 10.4 H (1.8-7.7) K/mm3 Chloride 107.1 H (98-107) mmol/L Carbon Dioxide 19 L (22-30) mmol/L BUN 21 H (7-17) mg/dL Creatinine 0.6 L (0.7-1.2) mg/dL Magnesium 4.40 H (1.7-2.3) mg/dL Alkaline Phosphatase 165 H (35-129) units/L Albumin 3.1 L (3.9-5) g/dL 10/25/18 10/25/18 Range/Units 07:07 14:09 WBC (4.5-11.0) K/mm3 RBC (3.65-5.03) M/mm3 [place] % (Auto) (0.0-7.3) % [place] # (0.0-0.8) K/mm3 Seg Neutrophils % (40.0-70.0) % Seg Neutrophils # (1.8-7.7) K/mm3 Chloride (98-107) mmol/L Carbon Dioxide (22-30) mmol/L BUN (7-17) mg/dL Creatinine (0.7-1.2) mg/dL Magnesium 4.60 H 5.20 H (1.7-2.3) mg/dL Alkaline Phosphatase (35-129) units/L Albumin (3.9-5) g/dL
[2018-10-25] MEDS: LACTATED RINGERS 1,000 ML IV SCH (17:23)
[2018-10-25] MEDS: MAGNESIUM SULFATE 40GM/1000ML 40 GM/1,000 ML BAG IV SCH (19:37)
[2018-10-25] MEDS: IBUPROFEN PO PRN (22:23)
[2018-10-26] MEDS: NORCO 5/325 PO PRN ×4 (01:44→19:18)
[2018-10-26] MEDS: IBUPROFEN PO PRN ×3 (05:37→19:18)
[2018-10-26] MEDS ORDERED: BOOSTRIX IM ONE (06:00)
[2018-10-26] MEDS: FEOSOL PO SCH ×2 (08:17→10:00)
[2018-10-26] MEDS: NORMODYNE PO SCH ×4 (08:18→23:17)
--- NOTE | 2018-10-26 23:49 | Progress Note ---
Assessment and Plan A: day 2 S/P primary low transverse section. P: Continue current management. Subjective - Subjective Date of service: 10/26/18 Principal diagnosis: /postop day 2 S/P primary LTCS Interval history: /postop day 2 S/P primary low transverse section. Preeclampsia with severe features. Patient reports: appetite normal, voiding normally, pain well controlled, flatus, ambulating normally, no dizzy ambulation, no nauseated : doing well Objective - Vital Signs Latest vital signs: Vital Signs Temp Pulse Resp BP BP Pulse Ox 10/26/18 23:17 75 142/81 10/26/18 21:01 98.4 F 91 H 18 140/79 98 10/26/18 15:52 98.0 F 69 20 134/72 98 10/26/18 09:01 97.5 F L 81 20 128/73 96 10/26/18 06:37 97.6 F 75 18 142/88 97 10/26/18 06:35 18 10/26/18 05:37 18 10/26/18 02:44 18 10/26/18 01:44 18 10/26/18 01:37 97.7 F 85 18 130/83 10/26/18 01:15 88 94 10/26/18 01:12 77 91 10/26/18 01:10 76 95 10/26/18 01:07 75 91 10/26/18 01:05 78 96 10/26/18 01:02 78 92 10/26/18 01:00 87 94 10/26/18 00:55 78 93 10/26/18 00:50 76 90 10/26/18 00:49 75 90 10/26/18 00:45 76 92 10/26/18 00:44 76 91 10/26/18 00:40 77 93 10/26/18 00:39 85 94 10/26/18 00:35 86 94 10/26/18 00:32 91 H 94 10/26/18 00:30 90 96 10/26/18 00:27 85 94 10/26/18 00:25 87 96 10/26/18 00:21 86 94 10/26/18 00:20 86 95 10/26/18 00:16 82 122/71 92 10/26/18 00:15 81 96 10/26/18 00:10 81 L 10/26/18 00:07 84 94 10/26/18 00:03 97 H 96 10/25/18 23:58 80 95 10/25/18 23:57 81 94 10/25/18 23:53 85 99 Intake and Output 10/26/18 10/26/18 10/26/18 07:59 15:59 23:59 Intake Total 480 480 Output Total 200 Balance 280 480 Intake: Intake, Free Water 480 480 Output: Urine 200 Void 200 Other: Total, Output Amount 200 # Voids Void 1 2 - Exam Cardiovascular: Present: Regular rate, Normal S1, Normal S2, Other (murmur heard) Abdomen: Present: normal appearance, soft, normal bowel sounds. Absent: distention, tenderness, guarding, rigidity Uterus: Present: normal, firm, fundal height below umbilicus. Absent: bogginess, tenderness Extremities: Present: normal, edema. Absent: tenderness Incision: Present: normal, dry, intact
[2018-10-27] MEDS: NORCO 5/325 PO PRN (00:48)
[2018-10-27] MEDS: IBUPROFEN PO PRN ×2 (04:37→22:05)
[2018-10-27] MEDS: FEOSOL PO SCH (10:05)
[2018-10-27] MEDS: NORMODYNE PO SCH ×2 (10:05→22:05)
--- NOTE | 2018-10-27 15:15 | Progress Note ---
Assessment and Plan - Patient Problems (1) S/P primary low transverse Current Visit: Yes Status: Acute Plan to address problem: POD 2 - unstable due to SOB at rest Continue routine postop orders Ambulation encouraged, as tolerated Abdominal binder ordered Anticipate discharge in 24 hours (2) Pre-eclampsia Current Visit: Yes Status: Acute Qualifiers: Trimester: third trimester Qualified Code(s): O14.93 - Unspecified pre- eclampsia, third trimester Plan to address problem: BPs stable Completed magnesium sulfate therapy Continue Labetalol 100mg PO BID (3) Shortness of breath at rest Current Visit: Yes Status: Acute Plan to address problem: Last H&H 10.9 / 32.0 No active bleeding or coughing present Repeat CBC and chest X-ray ordered (4) Rh negative, maternal Current Visit: Yes Status: Acute Qualifiers: Trimester: third trimester Qualified Code(s): O26.893 - Other specified related conditions, third trimester; Z67.91 - Unspecified blood type, Rh negative Plan to address problem: RhoGam deferred - baby Oneg Subjective - Subjective Date of service: 10/27/18 Principal diagnosis: POD #2; s/p Primary LTCS Interval history: see H&P, OB Progress Note, Event Notes, Operative Report and PP/[employer] Progress Notes Patient reports: appetite normal, voiding normally, pain well controlled, flatus, other (shortness of breath at rest. Denies headache, visual disturbances or RUQ pain), no dizzy ambulation, no bowel movement : doing well, other (breast and bottle feeding) Objective - Vital Signs Latest vital signs: Vital Signs Temp Pulse Resp BP BP Pulse Ox 10/27/18 12:09 98.1 F 89 18 131/83 10/27/18 10:05 83 135/75 10/27/18 08:03 97.7 F 73 18 135/85 10/27/18 05:32 97.4 F L 73 18 139/82 96 10/27/18 00:59 97.9 F 85 18 138/78 96 10/26/18 23:17 75 142/81 10/26/18 21:01 98.4 F 91 H 18 140/79 98 10/26/18 15:52 98.0 F 69 20 134/72 98 Intake and Output 10/26/18 10/27/18 10/27/18 23:59 07:59 15:59 Intake Total 480 240 960 Output Total 1 Balance 480 239 960 Intake: Oral 960 Intake, Free Water 480 240 Output: Stool 1 Other: Total, Intake Amount 480 Total, Output Amount 1 # Voids Void 2 1 - Exam Cardiovascular: Present: Regular rate Lungs: Present: Clear to auscultation Abdomen: Present: normal appearance, soft Vulva: both: normal Uterus: Present: normal, firm, fundal height below umbilicus Extremities: Present: edema (2+) Incision: Present: normal, dry, intact, dressed Comments: small lochia
[2018-10-27 15:33] LABS: Hematocrit 29.7 % (30.3-42.9); Mean Corpuscular HGB Conc 34 % (30-34); Mean Corpuscular Volume 95 fl (79-97); Platelet Count 198 K/mm3 (140-440); Red Blood Count 3.13 M/mm3 (3.65-5.03); Red Cell Distribution Width 14.5 % (13.2-15.2)
--- NOTE | 2018-10-27 17:57 | XRay Report ---
CHEST 2 VIEWS INDICATION: s/p Primary C/S, SOB at rest. COMPARISON: None. FINDINGS: Support devices: None. Heart: Within normal limits. Lungs/Pleura: No acute air space or interstitial disease. No significant pleural effusion. IMPRESSION: No acute findings. Signer Name: Sebastian Meza MD Signed: 10/27/2018 5:52 PM Workstation Name: [id number]
[2018-10-27] MEDS ORDERED: AMBIEN PO PRN (18:34)
[2018-10-28] MEDS: NORCO 5/325 PO PRN (00:15)
[2018-10-28] MEDS: FEOSOL PO SCH (10:56)
[2018-10-28] MEDS: NORMODYNE PO SCH (10:58)
--- NOTE | 2018-10-28 12:39 | Progress Note ---
Assessment and Plan (1) S/P primary low transverse Current Visit: Yes Status: Acute Plan to address problem: POD 3 - stable Continue routine postop orders Ambulation encouraged, as tolerated Discharge today (2) Pre-eclampsia Current Visit: Yes Status: Acute Qualifiers: Trimester: third trimester Qualified Code(s): O14.93 - Unspecified pre- eclampsia, third trimester Plan to address problem: BPs stable Completed magnesium sulfate therapy Continue Labetalol 100mg PO BID (3) Shortness of breath at rest Current Visit: Yes Status: Acute Plan to address problem: Last H&H 10.9 / 32.0 No active bleeding or coughing present Repeat CBC and chest X-ray; WNL Resolved Subjective - Subjective Date of service: 10/28/18 Principal diagnosis: POD #3; s/p Primary LTCS Interval history: 33 yo , CHRISS 11/09/2018, 37 weeks 4 days sent from [facility] with elevated pressures, c/o persistent headaches for PIH work-up. Pt previously had PIH labs (WNL) and 24 hr UA collection (400 Protein) on 10/17/18. Today NST reactive and reassuring. BPP 10/23. GAYLE 11cm. PIH labs LDH 232. Pt c omplains of persistent BECKMAN with no relief from Tylenol. 1+ edema noted. Per consult with Dr. Edmondson pt to be admitted for cervidil IOL. Pt transferred care to [facility] at 33w1d from [facility]. has been uncomplicated until onset of headaches and elevated b/p recently. Patient reports: appetite normal, voiding normally, pain well controlled, flatus, ambulating normally Umbarger: doing well Objective - Vital Signs Latest vital signs: Vital Signs Temp Pulse Resp BP BP BP Pulse Ox 10/28/18 10:58 68 142/90 10/28/18 08:03 97.8 F 55 L 20 142/73 97 10/28/18 04:30 68 135/80 10/28/18 02:50 98.1 F 77 18 152/88 10/28/18 00:15 18 10/27/18 22:05 78 20 146/82 10/27/18 21:38 98.9 F 82 18 146/82 97 10/27/18 17:39 97.2 F L 82 18 160/82 Intake and Output 10/27/18 10/28/18 10/28/18 23:59 07:59 15:59 Intake Total 480 640 240 Balance 480 640 240 Intake: Oral 480 240 Intake, Free Water 640 Other: Total, Intake Amount 480 120 # Voids Void 2 1 - Exam Breasts: Present: normal Cardiovascular: Present: Regular rate, Normal S1, Normal S2, No murmurs Lungs: Present: Clear to auscultation, Normal air movement Abdomen: Present: normal appearance, soft, tenderness (as expected post-op), normal bowel sounds. Absent: distention Vulva: both: normal Uterus: Present: firm, fundal height at umbilicus Extremities: Present: normal, edema (1+) Deep Tendon Reflex Grade: Normal +2 Incision: Present: normal (LTI, CDI), dry, intact - Labs Labs: Abnormal lab results 10/27/18 Range/Units 15:12 RBC 3.13 L (3.65-5.03) M/mm3 Hgb 10.0 L (10.1-14.3) gm/dl Hct 29.7 L (30.3-42.9) %
--- NOTE | 2018-10-28 12:44 | Discharge Summary ---
Providers - Providers Date of Admission: 10/23/18 23:14 Date of discharge: 10/28/18 Attending physician: AGATA ARAUJO MD Primary care physician: AGATA ARAUJO MD Hospitalization Reason for admission: active labor Delivery: Procedure: primary low transverse Procedure details: See H&P and delivery note Incision: normal, dry, intact Other procedures: none complications: other (SOB; Resolved. Chest Xray and H/H WNL. ) Discharge diagnosis: IUP at term delivered [place] baby: male Condition at discharge: Good Disposition: DC-01 TO HOME OR SELFCARE Plan - Discharge Medications Prescriptions: Labetalol [Labetalol 100mg TAB] 100 mg PO BID #60 tablet HYDROcodone/APAP 5-325 [[place] 5/325] 1 - 2 each PO Q4HR PRN 7 Days #30 tablet PRN Reason: Pain - Provider Discharge Summary Activity: routine, no sex for 6 weeks, no heavy lifting 4 weeks, no strenuous exercise Diet: routine Instructions: routine Additional instructions: [] Smoking cessation referral if applicable(refer to patient education folder for contact #) [] Refer to [facility]'s [facility] Booklet Call your doctor immediately for: * Fever > 100.5 * Heavy vaginal bleeding ( >1 pad per hour) * Severe persistent headache * Shortness of breath * Reddened, hot, painful area to leg or breast * Drainage or odor from incision. * Keep incision clean and dry at all times and follow doctor's instructions regarding bathing/showering Continue Labatelol 100mg twice daily f/u with MD in 1 week - Follow up plan Follow up: AGATA ARAUJO MD [Primary Care Provider] - 7 Days Forms: [facility] Discharge Summary, Discharge Signature Page
[2018-10-28 15:52] VITALS: BP 140/80
== END 2018-10-28 16:00 | disposition home or self-care (01) | DRG 787 ==
LOC: TRG 17:37 → LD 23:14 → OB 10-26 01:25
PROVIDERS: ADMIT Obstetrics & Gynecology; ATTEND Obstetrics & Gynecology
PROC: 10D00Z1 Extraction of Products of Conception, Low, Open Approach (ICD-10-PCS; principal; 2018-10-25)
PROC: 3E0234Z Introduction of Serum, Toxoid and Vaccine into Muscle, Percutaneous Approach (ICD-10-PCS; 2018-10-26)
DX: O14.14 Severe pre-eclampsia complicating childbirth (principal); O99.354 Diseases of the nervous system complicating childbirth; Z3A.37 37 weeks gestation of pregnancy; Z37.0 Single live birth; O13.4 Gestational [pregnancy-induced] hypertension without significant proteinuria, complicating childbirth; O61.9 Failed induction of labor, unspecified; R51 Headache; Z23 Encounter for immunization; Z67.41 Type O blood, Rh negative; O26.893 Other specified pregnancy related conditions, third trimester
CPT/HCPCS: 36415; 59200; 71046; 76815; 76819; 80053; 81001; 82565; 83615; 83735; 84450; 84460; 84550; 85014; 85018; 85025; 85027; 86850; 86870; 86900; 86901; 90471; 90715; G0378; J0595; J0690; J1170; J1200; J1885; J2405; J2590; J2765; J3475; J7120

== ENCOUNTER 2021-08-15 11:38 | Emergency (ER) | payer OTHER ==
[2021-08-15 12:24] VITALS: BP 119/75
[2021-08-15 13:25] LABS: Basophils % (Auto) 0.3 % (0.0-1.8); Eosinophils # (Auto) 0.1 K/mm3 (0.0-0.4); Eosinophils % (Auto) 1.3 % (0.0-4.3); Hematocrit 34.2 % (30.3-42.9); Hemoglobin 11.4 gm/dl (10.1-14.3); Lymphocytes # (Auto) 2.1 K/mm3 (1.2-5.4); Lymphocytes % (Auto) 29.1 % (13.4-35.0); Mean Corpuscular HGB Conc 33 % (30-34); Mean Corpuscular Volume 94 fl (79-97); Monocytes # (Auto) 0.4 K/mm3 (0.0-0.8); Platelet Count 179 K/mm3 (140-440); Red Blood Count 3.64 M/mm3 (3.65-5.03); Red Cell Distribution Width 13.3 % (13.2-15.2)
[2021-08-15 13:43] LABS: Alanine Aminotransferase 21 units/L (7-56); Albumin 4.6 g/dL (3.9-5); Blood Urea Nitrogen 11 mg/dL (7-17); Calcium 9.2 mg/dL (8.4-10.2); Hemolysis Index 8
[2021-08-15 13:44] LABS: BUN/Creatinine Ratio 16
[2021-08-15 14:40] LABS: HCG Qualitative,Urine Negative (Negative)
[2021-08-15 14:43] LABS: Bacteria,Urine 1+ /HPF (Negative); Bilirubin,Urine NEG (Negative); Blood,Urine SM (Negative); Color,Urine Yellow (Yellow); Mucus,Urine 1+ /HPF; Protein,Urine <15 mg/dL mg/dL (Negative); Urobilinogen,Urine < 2.0 mg/dL (<2.0)
--- NOTE | 2021-08-15 14:43 | Emergency Department Report ---
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 Patient states that she went to [place] to August 12 and since her return she has been having a headache and noticed rash to her bilateral arm which looks like a suntan. Patient states that she was concerned and wanted to come to the hospital to have platelets count drawn to make sure she did not have Dengue fever. Patient denies any fever, chills ,nausea or vomiting. Patient is alert and oriented x3. No acute distress noted. No ill appearance noted. - Related Data Previous Rx's Medication Instructions Recorded Last Taken Type HYDROcodone/APAP 5-325 [[place] 1 - 2 each PO Q4HR PRN 7 Days #30 10/25/18 Unknown Rx 5/325] tablet labetaloL [Labetalol 100mg TAB] 100 mg PO BID #60 tablet 10/28/18 Unknown Rx labetaloL [Labetalol 200mg TAB] 200 mg PO BID #60 tablet 10/28/18 Unknown Rx Ibuprofen [Motrin] 800 mg PO Q8HR PRN 15 Days #30 08/15/21 Unknown Rx tablet Allergies Allergy/AdvReac Type Severity Reaction Status Date / Time No Known Allergies Allergy Verified 10/17/18 13:47 ED Review of Systems ROS: Stated complaint: FEVER Other details as noted in HPI Constitutional: denies: chills, fever Eyes: denies: eye pain, eye discharge, vision change ENT: denies: ear pain, throat pain Respiratory: denies: cough, shortness of breath, wheezing Cardiovascular: denies: chest pain, palpitations Endocrine: no symptoms reported Gastrointestinal: denies: abdominal pain, nausea, diarrhea Genitourinary: denies: urgency, dysuria, discharge Musculoskeletal: denies: back pain, joint swelling, arthralgia Skin: denies: rash, lesions Neurological: denies: headache, weakness, paresthesias Psychiatric: denies: anxiety, depression Hematological/Lymphatic: denies: easy bleeding, easy bruising ED Past Medical Hx - Past Medical History Hx Hypertension: No Hx Congestive Heart Failure: No Hx Diabetes: No Hx Deep Vein Thrombosis: No Hx Renal Disease: No Hx Sickle Cell Disease: No Hx Seizures: No Hx Asthma: No Hx COPD: No Hx HIV: No - Surgical History Past Surgical History?: No - Social History Smoking Status: Never Smoker - Medications Home Medications: Home Medications Medication Instructions Recorded Confirmed Last Taken Type HYDROcodone/APAP 5-325 [[place] 1 - 2 each PO Q4HR PRN 7 Days #30 10/25/18 Unknown Rx 5/325] tablet labetaloL [Labetalol 100mg TAB] 100 mg PO BID #60 tablet 10/28/18 Unknown Rx labetaloL [Labetalol 200mg TAB] 200 mg PO BID #60 tablet 10/28/18 Unknown Rx Ibuprofen [Motrin] 800 mg PO Q8HR PRN 15 Days #30 08/15/21 Unknown Rx tablet ED Physical Exam - General Limitations: No Limitations General appearance: alert, in no apparent distress - Head Head exam: Present: atraumatic, normocephalic - Eye Eye exam: Present: normal appearance - ENT ENT exam: Present: mucous membranes moist - Neck Neck exam: Present: normal inspection - Respiratory Respiratory exam: Present: normal lung sounds bilaterally. Absent: respiratory distress - Cardiovascular Cardiovascular Exam: Present: regular rate, normal rhythm. Absent: systolic murmur, diastolic murmur, rubs, gallop - GI/Abdominal GI/Abdominal exam: Present: soft, normal bowel sounds - Extremities Exam Extremities exam: Present: normal inspection - Back Exam Back exam: Present: normal inspection - Neurological Exam Neurological exam: Present: alert, oriented X3 - Psychiatric Psychiatric exam: Present: normal affect, normal mood - Skin Skin exam: Present: warm, dry, intact, normal color. Absent: rash ED Course Vital Signs 08/15/21 08/15/21 12:21 15:24 Temperature 98.2 F Pulse Rate 72 Respiratory 14 Rate Blood Pressure 119/75 O2 Sat by Pulse 98 99 Oximetry ED Medical Decision Making - Lab Data Result diagrams: 08/15/21 13:00 08/15/21 13:00 - Radiology Data [facility] [address] [place] [address] XRay Report Signed Patient: RAJI IRWIN MR# : [id number] : 1985 Acct:[id number] Age/Sex: 36 / F ADM Date: 08/15/21 Loc: ED Attending Dr: Ordering Physician: TREY MAKI Date of Service: 08/15/21 Procedure(s): XR chest routine 2V Accession Number(s): [id number] cc: TREY Elba MAKI Fluoro Time In Minutes: CHEST 2 VIEWS INDICATION: fevere. COMPARISON: 10/27/2018. FINDINGS: Support devices: None. Heart: Within normal limits. Lungs/Pleura: No acute air space or interstitial disease. No significant pleural effusion. IMPRESSION: No acute findings. Signer Name: Sebastian Meza MD Signed: 08/15/2021 3:11 PM Workstation Name: [id number] Transcribed By: ES Dictated By: Sebastian Meza MD Electronically Authenticated By: Sebastian Meza MD Signed Date/Time: 08/15/211510 DD/ 10 - Medical Decision Making chemical processor use via language line -36-year-old female presents to have platelets drawn for Dengue fever. Patient states that she went to [place] to [place] 12 and since her return she has been having a headache and noticed rash to her bilateral arm which looks like a suntan. Patient states that she was concerned and wanted to come to the hospital to have platelets count drawn to make sure she did not have Dengue fever. Patient denies any fever, chills ,nausea or vomiting. Patient is alert and oriented x3. No acute distress noted. No ill appearance noted. Physical examination is unremarkable Rechecked the patient is resting quietly quietly and comfortable and feeling better. I discussed the results of diagnostic study, my clinical impression and the plan for further treatment with the patient. Patient agrees with plan and discharge at this present time. All question addressed. I have given the patient instruction regarding a diagnosis ,expectation ,follow- up and return precaution. I explained to the patient that emergent condition may arise and to return to the ED for new worsen and any new persisting condition. I have explained the importance of following up with the primary care physician or referral physician listed below has instructed. The patient verbalized understanding of discharge instruction. Critical care attestation.: If time is entered above; I have spent that time in minutes in the direct care of this critically ill patient, excluding procedure time. ED Disposition Clinical Impression: Fever, Generalized body aches Disposition: HOME / SELF CARE / HOMELESS Is pt being admited?: No Does the pt Need Aspirin: No Condition: Stable Instructions: Musculoskeletal Pain Additional Instructions: Take [id number] Tylenol or Motrin for body aches Turn to the ED for any worsening symptom Prescriptions: Ibuprofen [Motrin] 800 mg PO Q8HR PRN 15 Days #30 tablet PRN Reason: Pain, Moderate (4-6) Referrals: [facility] [Provider Group] - 3-5 Days Forms: Work/School Release Form(ED) Time of Disposition: 15:23
--- NOTE | 2021-08-15 15:16 | XRay Report ---
CHEST 2 VIEWS INDICATION: fevere. COMPARISON: 10/27/2018. FINDINGS: Support devices: None. Heart: Within normal limits. Lungs/Pleura: No acute air space or interstitial disease. No significant pleural effusion. IMPRESSION: No acute findings. Signer Name: Sebastian Meza MD Signed: 08/15/2021 3:11 PM Workstation Name: [id number]
== END 2021-08-15 15:42 | disposition home or self-care (01) ==
LOC: ED 11:38
DX: R50.9 Fever, unspecified (principal); R52 Pain, unspecified
CPT/HCPCS: 36415; 71046; 80053; 81001; 81025; 85025; 99283